=== PATIENT | male | born 1945 | race Caucasian/White ===

== ENCOUNTER 2016-10-06 11:23 | Outpatient (CLI) | payer MEDICARE | END 2016-10-06 11:24 | disposition home or self-care (01) | DX: E11.9 Type 2 diabetes mellitus without complications (principal) ==

== ENCOUNTER 2017-04-02 15:10 | Outpatient (CLI) | payer MEDICARE ==
[2017-04-02 18:56] LABS: ALBUMIN/GLOBULIN RATIO 1.6 (1.0-2.2); BUN - BLOOD UREA NITROGEN 30 mg/dL (6-20); CALCIUM 9.4 mg/dL (8.5-10.3); CARBON DIOXIDE - CO2 26 mmol/L (21-32); CHLORIDE 99 mmol/L (101-111); CHOLESTEROL 138 mg/dL; CREATININE 1.3 mg/dL (0.6-1.2); GFR - MDRD 55 (>89); GLUCOSE 79 mg/dL (70-100); HDL CHOLESTEROL 46 mg/dL; LDL/HDL RATIO 1.4 (<3.6); POTASSIUM 5.3 mmol/L (3.5-5.0); SODIUM 136 mmol/L (135-145); TOTAL PROTEIN 7.3 g/dL (6.7-8.2); TRIGLYCERIDES 137 mg/dL; VLDL CHOLESTEROL 27 mg/dL
[2017-04-02 19:49] LABS: HEMOGLOBIN A1C 0.64 g/dL
== END 2017-04-02 15:11 | disposition home or self-care (01) ==
LOC: LAB.R 15:10
PROVIDERS: ATTEND Internal Medicine
DX: E78.5 Hyperlipidemia, unspecified (principal); E11.9 Type 2 diabetes mellitus without complications
CPT/HCPCS: 80053; 80061; 83036

== ENCOUNTER 2017-06-13 11:16 | Emergency (ER) | payer MEDICARE ==
--- NOTE | 2017-06-13 11:51 | ED Physician Documentation ---
History of Present Illness - Stated complaint Stated Complaint: DIZZY - Chief complaint Chief Complaint: Neuro - Additonal information Additional information: hx from pt 72 male hx DM and perhaps a hx of irreg HR awoke this AM unable to ambulate 2/2 balance issues/ataxia not vertigo/dizziness no MORALES no neck pain no fall or injury no numbness no weakness no vision/hearing/speech changes Review of Systems Constitutional: denies: Fever Eyes: denies: Loss of vision Ears: denies: Loss of hearing Cardiac: denies: Chest pain / pressure Respiratory: denies: Dyspnea GI: denies: Abdominal Pain Endocrine: denies: Easy bruising / bleeding Immunocompromised: denies: Immunocompromised PD PAST MEDICAL HISTORY - Past Medical History Past Medical History: Yes Cardiovascular: Hypertension Respiratory: None Neuro: None Endocrine/Autoimmune: Type 2 diabetes GI: None : Kidney stones HEENT: None Psych: None Musculoskeletal: None Derm: None - Past Surgical History General: Cholecystectomy - Present Medications Home Medications: Ambulatory Orders Medication Instructions Recorded Confirmed Allopurinol [Zyloprim] 500 mg PO DAILY 11/20/14 06/13/17 Lisinopril 0 mg PO DAILY 11/20/14 06/13/17 metFORMIN [Glucophage] 1,000 mg PO BID 11/20/14 06/13/17 Meclizine [Antivert] 25 mg PO Q6H PRN #20 tablet 06/13/17 - Allergies Allergies/Adverse Reactions: Allergies Allergy/AdvReac Type Severity Reaction Status Date / Time No Known Drug Allergies Allergy Verified 11/20/14 17:18 - Social History Does the pt smoke?: No Smoking Status: Never smoker Does the pt drink ETOH?: Yes Does the pt have substance abuse?: No - Immunizations Immunizations are current?: Yes - POLST Patient has POLST: No PD ED PE NORMAL - Vitals Vital signs reviewed: Yes - General General: Alert and oriented X 3 - HEENT HEENT: PERRL, EOMI (no nystagmus) - Neck Neck: Supple, no meningeal sign - Cardiac Cardiac: RRR - Respiratory Respiratory: No respiratory distress, Clear bilaterally - Abdomen Abdomen: Soft, Non tender - Neuro Neuro: Alert and oriented X 3, track service person 2-12 intact, No motor deficit, No sensory deficit, Normal speech Eye Opening: Spontaneous Motor: Obeys Commands Verbal: Oriented GCS Score: 15 Results - Vitals Vitals: Vital Signs - 24 hr 06/13/17 06/13/17 06/13/17 11:20 12:46 17:41 Temperature 36.0 C L 36.5 C Heart Rate 70 66 70 Respiratory 17 15 16 Rate Blood Pressure 140/94 H 112/65 133/89 H O2 Saturation 95 98 96 Oxygen O2 Source [] Room air O2 Source Room air - EKG (time done) 1126 Rate: Rate (enter#) (67) Rhythm: NSR (`) [place]: LAD Intervals: Normal NC Ischemia: Normal ST segments - Labs Labs: Laboratory Tests 06/13/17 06/13/17 12:00 12:00 WBC 5.6 RBC 4.97 Hgb 15.0 Hct 45.1 MCV 90.9 MCH 30.3 MCHC 33.3 RDW 14.7 Plt Count 188 MPV 7.8 Neut # 3.0 Lymph # 1.8 Jack # 0.4 Eos # 0.4 Baso # 0.1 Absolute Nucleated RBC 0.00 Nucleated RBC % 0.0 Sodium 138 Potassium 4.5 Chloride 103 Carbon Dioxide 28 Anion Gap 7.0 BUN 28 H Creatinine 1.4 H Estimated GFR (MDRD) 50 L Glucose 141 H Calcium 9.1 - Rads (name of study) MRI brain Radiology: See rad report (no acute mass infarct bleed - scattered areas most c/ w sequelae of chrinic infarction) MRA brain Radiology: See rad report (no abn) MRA neck Radiology: See rad report (no abn) echo Radiology: See rad report (NSR, LVH, 65-70%, no thrombus, dilated aortic root at 4 cm without dissection) PD MEDICAL DECISION MAKING - ED course ED course: presently NIHSS zero and pt is able to ambulate and sx are clearing though still feels off balance awoke with sx so even if this is a CVA pt is not a TPA candidate sx improving so sounds concerning for cerebellar TIA limited admission capabilities at [facility] today 2/2 tele malfunction on med surg - so will do full TIA work up from ER (MRI brain MRA brain neck, echo) all results back - no evidence of acute CVA and no reversible cause for TIA found will try meclizine sx continue to imprve though not completely gone at this pt feel have ruled out emergent and / or reversible issues and safe to dc pt home with PMD fup Departure - Departure Disposition: 01 Home, Self Care Clinical Impression: Dizziness, Ataxia Condition: Good Instructions: ED Dizziness [facility]O Follow-Up: Joseph Michaud MD [Primary Care Provider] - Prescriptions: Meclizine [Antivert] 25 mg PO Q6H PRN #20 tablet PRN Reason: Dizziness Comments: The MRIs do not show any new strokes or tumors or bleeding in your brain. There was some evidence of old small strokes due to small vessel disease and an area in the back right of your brain that may have been injured or suffered a stroke in the past - none of these findings would explain your symptoms today On the angiogram, all the vessels look fine too - no blockages or tears. The ultrasound of your heart was mostly fine too - normal rhythm, no clots in the chambers or on the valves to embolize to your brain. The only abnormality was an enlarged aorta which would not cause the symptoms you had today but needs to be followed by your PMD with an ultrasound every 6 months or so so make sure the aorta does not get so big it needs surgery to prevent rupture. Given the reassuring work up in the ER today, I do not think your symptoms were due to a stoke or a mini stroke (TIA) It may be a problem with the balance chambers of your inner ear. Given the reassuring work up, and that your symptoms are improved to the point where you feel safe walking, think it is safe for you to go home. Take the medication I prescribed as needed. Please follow up with your PMD for a recheck within the week - if you continue to have symptoms you may need to to see a neurologist for more work up beyond what we have been able to do today in the ER NIHSS - Time Time: 11:45 - Level of Consciousness Level of consciousness: (0) Alert, Keenly responsive LOC Questions: (0) Answers both Q's correct LOC Commands: (0) Performs both correctly - Gaze Best Gaze: (0) Normal - Visual Visual: (0) No loss - Facial Palsy Facial Palsy: (0) Normal, symmetrical movement - Motor Arms (both separate) Motor Arm (right): (0) No drift Motor Arm (left): (0) No drift - Motor Legs (both separate) Motor Leg (right): (0) No drift Motor Leg (left): (0) No drift - Limb Ataxia Limb Ataxia: (0) Absent - Sensory Sensory: (0) Normal - Best Language Best Language: (0) No aphasia - Dysarthria Dysarthria: (0) Normal - Extinction and Inattention (formally neg Extinction and inattention: (0) No abnormality - Total Score/Results Total Score/Result: 0
[2017-06-13 12:20] LABS: BASOPHILS # (AUTO) 0.1 10^3/uL (0.0-0.1); EOSINOPHILS # (AUTO) 0.4 10^3/uL (0.0-0.7); EOSINOPHILS % (AUTO) 7.7 %; LYMPHOCYTES # (AUTO) 1.8 10^3/uL (1.5-3.5); LYMPHOCYTES % (AUTO) 31.8 %; MEAN CORPUSCULAR HEMOGLOBIN 30.3 pg (27.0-31.0); MEAN CORPUSCULAR HGB CONC 33.3 g/dL (32.0-36.0); MEAN CORPUSCULAR VOLUME 90.9 fL (80.0-94.0); MEAN PLATELET VOLUME 7.8 fL (7.4-11.4); MONOCYTES # (AUTO) 0.4 10^3/uL (0.0-1.0); MONOCYTES % (AUTO) 6.3 %; NEUTROPHILS % (AUTO) 53.2 %; PLT - PLATELET COUNT 188 10^3/uL (130-450); RED BLOOD COUNT 4.97 10^6/uL (4.70-6.10); RED CELL DISTRIBUTION WIDTH 14.7 % (12.0-15.0); WHITE BLOOD COUNT 5.6 x10^3/uL (4.8-10.8)
[2017-06-13 12:25] LABS: CALCIUM 9.1 mg/dL (8.5-10.3); CREATININE 1.4 mg/dL (0.6-1.2)
--- NOTE | 2017-06-13 15:48 | MRI Report ---
EXAM: MRI BRAIN WITHOUT CONTRAST EXAM DATE: 06/13/2017 03:23 PM. CLINICAL HISTORY: Ataxia. COMPARISON: None. TECHNIQUE: Multiplanar, multisequence T1-weighted and fluid-sensitive MR sequences of the brain were performed. Sequences optimized for routine evaluation. Other: None. IV Contrast: None. FINDINGS: The study is limited due to patient inability to lay flat; as such standard head coil was not used, i Streaktead FLEX-M oil was used. Brain Volume: Normal for age. Parenchyma/Dura: No evidence of acute or subacute infarct. No evidence of intracranial hemorrhage, ma ss, midline shift, or hydrocephalus. Cystic encephalomalacia posterior right cerebellar hemisphere, l ikely representing sequela of chronic infarction. Scattered T2/FLAIR hyperintense subcortical and [place]ol[place] p white matter lesions within cerebral hemispheres bilaterally. No parenchymal microhemorrhages. Ventricles/Cisterns: No hydrocephalus. No abnormal extra-axial fluid collection or hemorrhage. Orbits: Symmetric and unremarkable. Sella Turcica: The pituitary gland, cavernous sinuses, suprasellar cistern and optic chiasm are unrem arkable. IAC: Symmetric and unremarkable. Vasculature: Normal signal flow void is seen in the major arterial structures at the skull base. Sinuses: No acute appearing sinus disease. Bones: No focal pathologic appearing marrow signal changes. Other: None. IMPRESSION: 1. No MRI evidence of acute intracranial abnormality, specifically no evidence of acute or subacute i nfarct, acute intracranial hemorrhage, mass, midline shift, or hydrocephalus. 2. Cystic encephalomalacia posterior right cerebellar hemisphere, likely representing sequela of coo page infarction. 3. Scattered T2/FLAIR hyperintense subcortical and deep white matter lesions within cerebral hemisphe res bilaterally. While nonspecific, these are favored to represent sequela of chronic microangiopathy . [facility] Referring Provider Line: [phone] SITE ID: [id number]
--- NOTE | 2017-06-13 15:57 | MRI Report ---
EXAM MRA BRAIN EXAM DATE: 06/13/2017 02:44 PM. CLINICAL HISTORY: Ataxia. COMPARISON: MRI brain obtained concurrently TECHNIQUE: Multiplanar, multisequence MRA sequences of the brain were performed. Other: None. Post-pr ocessing: Multiplanar 3D MIP reconstructions. IV Contrast: None. FINDINGS: RIGHT Internal Carotid (ICA): The cervical right internal carotid artery is tortuous but patent. The right carotid siphon is unremarkable. Middle Cerebral (MCA): No aneurysm, stenosis or anomaly. Anterior Cerebral (MERA): No aneurysm, stenosis or anomaly. Posterior Cerebral (BLUEPRINT REPRODUCER): No aneurysm, stenosis or anomaly. Posterior Communicating (P-COM): No aneurysm, stenosis or anomaly. Vertebral: No aneurysm, stenosis or anomaly in the visualized upper vertebral artery. LEFT Internal Carotid (ICA): The cervical left internal carotid artery is tortuous but patent. The left ca rotid siphon is unremarkable. Middle Cerebral (MCA): No aneurysm, stenosis or anomaly. Anterior Cerebral (MERA): No aneurysm, stenosis or anomaly. Posterior Cerebral (BLUEPRINT REPRODUCER): No aneurysm, stenosis or anomaly. Posterior Communicating (P-COM): No aneurysm, stenosis or anomaly. Vertebral: No aneurysm, stenosis or anomaly in the visualized upper vertebral artery. MIDLINE Anterior Communicating (A-COM): No aneurysm, stenosis or anomaly. Basilar Artery:No aneurysm, stenosis or anomaly. Other: None. IMPRESSION: 1. No MRA evidence of hemodynamically significant stenosis, dissection, occlusion, aneurysm, or vascu lar malformation within the intracranial arteries. 2. The cervical internal carotid arteries bilaterally are tortuous but patent. [facility] Referring Provider Line: [phone] SITE ID: [id number]
--- NOTE | 2017-06-13 16:00 | MRI Report ---
EXAM: MR ANGIOGRAM NECK EXAM DATE: 06/13/2017 02:33 PM. CLINICAL HISTORY: Ataxia. COMPARISON: None. TECHNIQUE: Multiplanar, multisequence MRA sequences of the neck were performed without intravenous co ntrast. Other: None. Post-processing: Multiplanar 3D MIP reconstructions. IV Contrast: None. Evaluat ion of arterial stenosis is based on a NASCET method of measurement. FINDINGS: Somewhat limited noncontrast MRA of the neck. RIGHT Common Carotid: The most proximal portion not visualized, likely artifactual Patent. No dissection or significant stenosis. Internal Carotid: Patent. No dissection or significant stenosis. External Carotid: Patent. No dissection or significant stenosis. Vertebral: Patent. No dissection or significant stenosis. LEFT Common Carotid: The most proximal portion not visualized, likely artifactual Patent. No dissection or significant stenosis. Internal Carotid: Patent. No dissection or significant stenosis. External Carotid: Patent. No dissection or significant stenosis. Vertebral: Patent. No dissection or significant stenosis. Intracranial Circulation: No stenoses or aneurysms in the visualized portion of the intracranial vasc ulature. Other: The soft tissues, bones, and lung apices are unremarkable. IMPRESSION: Somewhat limited noncontrast MRA evaluation of the neck arteries. Given this limitation, no definite hemodynamically significant stenosis, dissection, or occlusion involving the extracranial arteries. T he most proximal common carotid arteries are not visualized clearly on either side, however this is l ikely artifactual. [facility] Referring Provider Line: [phone] SITE ID: [id number]
--- NOTE | 2017-06-13 16:00 | MRI Preliminary Report ---
Exam: MRI ANGIO NECK W/O (MRA) IMPRESSION: Somewhat limited noncontrast MRA evaluation of the neck arteries. Given this limitation, no definite hemodynamically significant stenosis, dissection, or occlusion involving the extracranial arteries. T he most proximal common carotid arteries are not visualized clearly on either side, however this is l ikely artifactual. [facility] SITE ID: [id number]
[2017-06-13] MEDS ORDERED: MECLIZINE 12.5 MG TABLET PO STA (17:05)
[2017-06-13 17:41] VITALS: BP 133/89
== END 2017-06-13 18:30 | disposition home or self-care (01) ==
LOC: ED 11:16
DX: R42 Dizziness and giddiness (principal); N28.9 Disorder of kidney and ureter, unspecified; R94.31 Abnormal electrocardiogram [ECG] [EKG]; I10 Essential (primary) hypertension; E11.9 Type 2 diabetes mellitus without complications; Z79.84 Long term (current) use of oral hypoglycemic drugs
CPT/HCPCS: 36415; 70544; 70547; 70551; 80048; 85025; 93005; 93306; 99283; 99284; A9270

== ENCOUNTER 2017-12-11 08:38 | Outpatient (CLI) | payer MEDICARE ==
[2017-12-11 09:02] LABS: BASOPHILS % (AUTO) 0.8 %; EOSINOPHILS # (AUTO) 0.6 10^3/uL (0.0-0.7); EOSINOPHILS % (AUTO) 10.6 %; HGB - HEMOGLOBIN 14.1 g/dL (14.0-18.0); LYMPHOCYTES % (AUTO) 34.6 %; MEAN CORPUSCULAR HEMOGLOBIN 30.1 pg (27.0-31.0); MEAN CORPUSCULAR HGB CONC 32.3 g/dL (32.0-36.0); MEAN CORPUSCULAR VOLUME 93.4 fL (80.0-94.0); MEAN PLATELET VOLUME 7.6 fL (7.4-11.4); MONOCYTES # (AUTO) 0.4 10^3/uL (0.0-1.0); MONOCYTES % (AUTO) 7.5 %; NEUTROPHILS # (AUTO) 2.7 10^3/uL (1.5-6.6); NEUTROPHILS % (AUTO) 46.5 %; PLT - PLATELET COUNT 185 10^3/uL (130-450); RED BLOOD COUNT 4.68 10^6/uL (4.70-6.10); RED CELL DISTRIBUTION WIDTH 14.7 % (12.0-15.0); WHITE BLOOD COUNT 5.9 x10^3/uL (4.8-10.8)
[2017-12-11 09:25] LABS: ALBUMIN 3.9 g/dL (3.2-5.5); ALBUMIN/GLOBULIN RATIO 1.2 (1.0-2.2); ALKALINE PHOSPHATASE 87 IU/L (42-121); ALT ALANINE AMINOTRANSFERASE 17 IU/L (10-60); AST ASPARTATE AMINOTRANSFERASE 19 IU/L (10-42); BUN - BLOOD UREA NITROGEN 23 mg/dL (6-20); CALCIUM 9.1 mg/dL (8.5-10.3); CARBON DIOXIDE - CO2 30 mmol/L (21-32); CHLORIDE 99 mmol/L (101-111); CHOL/HDL RATIO 4.1 (<5.0); CHOLESTEROL 196 mg/dL; CREATININE 1.5 mg/dL (0.6-1.2); GFR - MDRD 46 (>89); GLUCOSE 122 mg/dL (70-100); HDL CHOLESTEROL 48 mg/dL; LDL CHOLESTEROL,CALCULATED 122 mg/dL; LDL/HDL RATIO 2.5 (<3.6); SODIUM 136 mmol/L (135-145); TOTAL PROTEIN 7.1 g/dL (6.7-8.2); URIC ACID 5.8 mg/dL (2.6-7.2); VLDL CHOLESTEROL 26 mg/dL
[2017-12-11 09:38] LABS: HB2 TOTAL 15.8 g/dL; HEMOGLOBIN A1C 0.67 g/dL
== END 2017-12-11 08:39 | disposition home or self-care (01) ==
LOC: LAB 08:38
PROVIDERS: ATTEND Internal Medicine
DX: E78.5 Hyperlipidemia, unspecified (principal); I10 Essential (primary) hypertension; E11.9 Type 2 diabetes mellitus without complications; Z79.899 Other long term (current) drug therapy
CPT/HCPCS: 36415; 80053; 80061; 83036; 83721; 84550; 85025

== ENCOUNTER 2018-04-22 11:46 | Outpatient (CLI) | payer MEDICARE ==
--- NOTE | 2018-04-22 14:43 | XRAY Report ---
Reason: SCAPULALGIA,RIGHT Procedure Date: 04/22/2018 Accession Number: [id number] / [id number] Procedure: XR - Chest 2 View X-Ray CPT Code: 09099 FULL RESULT: EXAM: CHEST RADIOGRAPHY EXAM DATE: 04/22/2018 12:36 PM. CLINICAL HISTORY: SCAPULALGIA,RIGHT. COMPARISON: None. TECHNIQUE: 2 views. FINDINGS: Lungs/Pleura: Bilateral nipple shadows. Left basilar atelectasis or scarring. Eventration right hemidiaphragm.. No pleural effusion. No pneumothorax. Normal volumes. Mediastinum: Heart size normal. Mildly ectatic aorta. Other: DJD spine. Right upper quadrant clips. IMPRESSION: No active cardiopulmonary disease [facility]
--- NOTE | 2018-04-22 15:24 | XRAY Report ---
Reason: SCAPULALGIA,RIGHT Procedure Date: 04/22/2018 Accession Number: [id number] / [id number] Procedure: XR - Ribs 2 View RT CPT Code: FULL RESULT: EXAM: RIGHT RIB RADIOGRAPHY EXAM DATE: 04/22/2018 12:36 PM. CLINICAL HISTORY: SCAPULALGIA,RIGHT. COMPARISON: Chest x-ray same day. TECHNIQUE: 4 views. FINDINGS: Bones: Normal. No fracture or bone lesion. Lungs: Area of diskoid atelectasis right lung base not well seen on x-ray.. No pneumothorax or pleural effusions. Mediastinum: Heart and cardiomediastinal contours are unremarkable. Other: None. IMPRESSION: 1. Normal rib radiography. 2. Area of diskoid atelectasis right lung base. Recommend short-term follow-up 1 month. [facility]
== END 2018-04-22 11:47 | disposition home or self-care (01) ==
LOC: DI 11:46
PROVIDERS: ATTEND Internal Medicine
DX: J98.11 Atelectasis (principal); M89.8X1 Other specified disorders of bone, shoulder
CPT/HCPCS: 71046

== ENCOUNTER 2019-04-15 08:26 | Emergency (ER) | payer MEDICARE ==
[2019-04-15 08:36] VITALS: BP 135/80
--- NOTE | 2019-04-15 09:08 | XRAY Report ---
Reason: pain swelling from fall 1 week ago Procedure Date: 04/15/2019 Accession Number: [id number] / [id number] Procedure: XR - Ankle 3 View LT CPT Code: Final Report FULL RESULT: EXAM: LEFT ANKLE RADIOGRAPHY EXAM DATE: 04/15/2019 08:44 AM. CLINICAL HISTORY: Left ankle pain. COMPARISON: None. TECHNIQUE: 3 views. FINDINGS: Bones: No fracture identified. Joints: Degenerative changes in the subtalar joint. Normal alignment. Soft Tissues: Normal. No soft tissue swelling. IMPRESSION: No acute findings. [facility]
--- NOTE | 2019-04-15 09:25 | ED Physician Documentation ---
History of Present Illness - Stated complaint Stated Complaint: LT PX - Chief complaint Chief Complaint: Trauma Ext - Additonal information Additional information: This is a 74-year-old male who presents with worsening left foot pain. Patient states he has history of some spinal stenosis which caused some chronic slight weakness in his left foot which is been persistent for many years, this leads him to occasionally have falls when he trips on his left foot. He had a fall last Sunday or , he does not member the exact mechanism but had some pain in his left foot afterwards. h+He has been able to walk on it fairly normally, but it has become bruised and swollen, and the pain ihas increased over the last week. Because of this he decided to come in today and get checked out. Review of Systems Constitutional: denies: Fever Musculoskeletal: reports: Extremity pain PD PAST MEDICAL HISTORY - Past Medical History Cardiovascular: Hypertension Respiratory: None Endocrine/Autoimmune: Type 2 diabetes GI: None : Kidney stones HEENT: None Psych: None Musculoskeletal: None Derm: None - Past Surgical History General: Cholecystectomy - Present Medications Home Medications: Ambulatory Orders Medication Instructions Recorded Confirmed Allopurinol [Zyloprim] 500 mg PO DAILY 11/20/14 06/13/17 Lisinopril 0 mg PO DAILY 11/20/14 06/13/17 metFORMIN [Glucophage] 1,000 mg PO BID 11/20/14 06/13/17 Meclizine [Antivert] 25 mg PO Q6H PRN #20 tablet 06/13/17 Acetaminophen 650 mg PO Q6HR #30 tablet 04/15/19 Ibuprofen 600 mg PO Q6H PRN #30 tablet 04/15/19 - Allergies Allergies/Adverse Reactions: Allergies Allergy/AdvReac Type Severity Reaction Status Date / Time No Known Drug Allergies Allergy Verified 04/15/19 08:36 - Social History Does the pt smoke?: No Smoking Status: Never smoker Does the pt drink ETOH?: Yes Does the pt have substance abuse?: No - Immunizations Immunizations are current?: Yes - POLST Patient has POLST: No PD ED PE NORMAL - General General: Alert and oriented X 3 - HEENT HEENT: Atraumatic - Neck Neck: Supple, no meningeal sign - Cardiac Cardiac: Strong equal pulses - Respiratory Respiratory: No respiratory distress - Extremities Extremities: Other (There is bruising and edema over the left foot, patient is tender over the base of the third through fourth metatarsal. There is no lateral medial malleoli tenderness. No proximal tibial or fibular tenderness. Sensation is intactTo light touch over the extremity, the patient states he has some chronic reduced sensation in the foot. He is able to dorsiflex and plantarflex ankle with 5 out of 5 strength.) Results - Vitals Vitals: Vital Signs - 24 hr 04/15/19 08:33 Temperature 36.5 C Heart Rate 72 Respiratory 15 Rate Blood Pressure 135/80 H O2 Saturation 98 Oxygen O2 Source [With Activity] Room air O2 Source Room air - Rads (name of study) XR ankle Radiology: Other (No acute osseous abnormality) Foot, weight bearing Radiology: Other (No acute fracture or abnormality) PD MEDICAL DECISION MAKING - ED course Complexity details: considered differential (Fracture, contusion, sprain, strain) ED course: Pt's limb is neurovascularly intact. There is swelling and bruising over the fore/midfoot. XR of the ankle and weight bearing films of the foot were negative for fracture. Occult fracture less likely given his ability to walk on it. I discussed RICE with patient, JOVANNA wrap applied, and PCP follow up recommended. I also discussed repeat XR for continued symptoms after a week. Patient agrees and was discharged home. Departure - Departure Disposition: 01 Home, Self Care Clinical Impression: Contusion Qualifiers: Encounter type: initial encounter Contusion area: foot Laterality: left Qualified Code(s): S90.32XA - Contusion of left foot, initial encounter Condition: Good Instructions: ED RICE Follow-Up: Héctor Ha MD [Primary Care Provider] - (Follow-up in 7 to 10 days if having not improving pain or worsening.) Prescriptions: Acetaminophen 650 mg PO Q6HR #30 tablet Ibuprofen 600 mg PO Q6H PRN #30 tablet PRN Reason: Pain Comments: You were seen today for foot pain. Our x-rays do not show sign of a fracture, is possible that you have a contusion or sprain of your foot. You can take the tylenol ibuprofen for discomfort, keep your foot elevated and try to ice it if possible. If you are having not improving or worsening pain please follow-up with your primary care provider in 7 to 10 days for repeat x-rays and evaluation. You may return to the emergency department with worsening symptoms especially symptoms such as new weakness or severe pain Discharge Date/Time: 04/15/19 11:26
--- NOTE | 2019-04-15 10:39 | XRAY Report ---
Reason: With weight bearing film please Procedure Date: 04/15/2019 Accession Number: [id number] / [id number] Procedure: XR - Foot 3 View LT CPT Code: Final Report FULL RESULT: EXAM: LEFT FOOT RADIOGRAPHY EXAM DATE: 04/15/2019 10:01 AM. CLINICAL HISTORY: With weight bearing film please. COMPARISON: ANKLE 3 VIEW LT 04/15/2019 8:39 AM. TECHNIQUE: 3 views. FINDINGS: Bones: No acute fracture. Prominent Achilles spur with lucency at the base. Joints: Normal. No subluxations. Soft Tissues: Mild diffuse left foot swelling. Mild left ankle swelling. IMPRESSION: 1. No fracture or malalignment. 2. Mild left foot and ankle swelling. 3. If patient remains symptomatic, recommend follow up in 10-14 days. [facility]
== END 2019-04-15 11:26 | disposition home or self-care (01) ==
LOC: ED 08:26
DX: S90.32XA Contusion of left foot, initial encounter (principal); W19.XXXA Unspecified fall, initial encounter; M54.5 Low back pain; E78.5 Hyperlipidemia, unspecified; M17.9 Osteoarthritis of knee, unspecified; I12.9 Hypertensive chronic kidney disease with stage 1 through stage 4 chronic kidney disease, or unspecified chronic kidney disease; N18.9 Chronic kidney disease, unspecified; E11.22 Type 2 diabetes mellitus with diabetic chronic kidney disease; Z79.84 Long term (current) use of oral hypoglycemic drugs
CPT/HCPCS: 36415; 80053; 80061; 83036; 84550; 85025; 99283

== ENCOUNTER 2019-04-15 11:29 | Outpatient (CLI) | payer MEDICARE ==
[2019-04-15 11:48] LABS: BASOPHILS # (AUTO) 0.1 10^3/uL (0.0-0.1); BASOPHILS % (AUTO) 0.7 %; EOSINOPHILS # (AUTO) 0.4 10^3/uL (0.0-0.7); EOSINOPHILS % (AUTO) 5.8 %; HGB - HEMOGLOBIN 14.6 g/dL (14.0-18.0); LYMPHOCYTES # (AUTO) 2.1 10^3/uL (1.5-3.5); LYMPHOCYTES % (AUTO) 28.7 %; MEAN CORPUSCULAR HEMOGLOBIN 29.7 pg (27.0-31.0); MEAN CORPUSCULAR VOLUME 95.7 fL (80.0-94.0); MEAN PLATELET VOLUME 9.3 fL (7.4-11.4); MONOCYTES # (AUTO) 0.6 10^3/uL (0.0-1.0); MONOCYTES % (AUTO) 7.9 %; NEUTROPHILS # (AUTO) 4.1 10^3/uL (1.5-6.6); NEUTROPHILS % (AUTO) 56.3 %; PLT - PLATELET COUNT 205 10^3/uL (130-450); RED BLOOD COUNT 4.92 10^6/uL (4.70-6.10); RED CELL DISTRIBUTION WIDTH 13.7 % (12.0-15.0); WHITE BLOOD COUNT 7.2 x10^3/uL (4.8-10.8)
[2019-04-15 12:05] LABS: ALBUMIN 4.3 g/dL (3.2-5.5); ALBUMIN/GLOBULIN RATIO 1.2 (1.0-2.2); ALKALINE PHOSPHATASE 70 IU/L (42-121); ALT ALANINE AMINOTRANSFERASE 20 IU/L (10-60); AST ASPARTATE AMINOTRANSFERASE 20 IU/L (10-42); BILIRUBIN,TOTAL 0.4 mg/dL (0.2-1.0); BUN - BLOOD UREA NITROGEN 31 mg/dL (6-20); CALCIUM 9.2 mg/dL (8.5-10.3); CARBON DIOXIDE - CO2 27 mmol/L (21-32); CHLORIDE 105 mmol/L (101-111); CHOL/HDL RATIO 3.2 (<5.0); CHOLESTEROL 145 mg/dL; CREATININE 1.5 mg/dL (0.6-1.2); GFR - MDRD 46 (>89); GLUCOSE 132 mg/dL (70-100); HDL CHOLESTEROL 46 mg/dL; LDL CHOLESTEROL,CALCULATED 72 mg/dL; LDL/HDL RATIO 1.6 (<3.6); SODIUM 143 mmol/L (135-145); TOTAL PROTEIN 7.8 g/dL (6.7-8.2); URIC ACID 5.7 mg/dL (2.6-7.2); VLDL CHOLESTEROL 27 mg/dL
[2019-04-15 12:24] LABS: HB2 TOTAL 14.5 g/dL; HEMOGLOBIN A1C 0.74 g/dL; HEMOGLOBIN A1C % 6.8 % (4.6-6.2)
== END 2019-04-15 11:30 | disposition home or self-care (01) ==
LOC: LAB 11:29
PROVIDERS: ATTEND Family Medicine
DX: M54.5 Low back pain (principal); M17.11 Unilateral primary osteoarthritis, right knee; I12.9 Hypertensive chronic kidney disease with stage 1 through stage 4 chronic kidney disease, or unspecified chronic kidney disease; M17.9 Osteoarthritis of knee, unspecified; E11.22 Type 2 diabetes mellitus with diabetic chronic kidney disease; N18.9 Chronic kidney disease, unspecified; E78.5 Hyperlipidemia, unspecified
CPT/HCPCS: 36415; 80053; 80061; 83036; 83721; 84550; 85025

== ENCOUNTER 2021-03-01 11:02 | Outpatient (CLI) | payer MEDICARE ==
--- NOTE | 2021-03-01 13:05 | MRI Report ---
PROCEDURE: Lumbar Spine W/O INDICATIONS: LUMBAR RADICULOPATHY TECHNIQUE: Noncontrast sagittal T1 spin echo and T2 fast echo, sagittal STIR, axial T1 and T2 fast spin echo thr ough the lumbar spine. In cases with scoliosis, additional coronal T2 fast spin echo may be performe d. COMPARISON: Correlation is made with prior abdomen and pelvis CT, 11/20/2014 FINDINGS: Image quality: Motion artifact is noted. Alignment and Curvature: There is normal bony alignment. Bone Marrow: Marrow is of normal overall signal. No acute vertebral body compression fractures. Spinal Cord: Conus medullaris terminates at the L1 level. Visualized cord demonstrates normal signa l and size. Paraspinous Soft Tissues: No paravertebral masses. Numerous bilateral renal cysts are seen. T12-L1: Normal in appearance. L1-L2: No significant abnormality is seen. L2-L3: The disc height is well-preserved. There is loss of disc signal seen. Moderate disc bulg e is seen, which is eccentric to the left. Moderate facet hypertrophy is seen. Mild to moderate jaqui ateral neuroforaminal narrowing can be seen. Moderate central canal narrowing is seen. L3-L4: The disc height is well-preserved. There is loss of disc signal seen. Moderate disc bulge i s seen at this level. Moderate facet hypertrophy is seen. Moderate bilateral neural foraminal abel rowing is seen. Moderate central canal narrowing is seen. L4-L5: Mild loss of disc height and disc signal are seen. Moderate disc bulge is seen, with a ce ntral/right disc protrusion. Apparent prior right hemilaminectomy change can be seen. Please clinical ly with known patient history. At least moderate facet hypertrophy is seen. There is moderate to juliette re bilateral neuroforaminal narrowing seen. Compression is seen upon the exiting nerve roots. Moder ate central canal narrowing is seen. L5-S1: Moderate to severe loss of disc height and disc signal can be seen. Moderate disc bulge is s een, with a central/left disc protrusion. At least moderate facet hypertrophy can be seen. Prior righ t hemilaminectomy change can be seen. At least moderate bilateral neuroforaminal narrowing can be see n. Compression is seen upon the exiting nerve roots. Moderate to severe central canal narrowing is s een. IMPRESSION: Multiple levels of lumbar spine degenerative change are seen, which are worst inferiorly . Prior right hemilaminectomy change at L4-L5 and L5-S1. Reviewed by: Gavin Crenshaw MD on 03/01/2021 12:04 PM [facility] Approved by: Gavin Crenshaw MD on 03/01/2021 12:04 PM [facility] Station ID: [id number]
== END 2021-03-01 11:03 | disposition home or self-care (01) ==
LOC: DI 11:02
PROVIDERS: ATTEND Family Medicine
DX: M47.26 Other spondylosis with radiculopathy, lumbar region (principal); M47.27 Other spondylosis with radiculopathy, lumbosacral region; M51.16 Intervertebral disc disorders with radiculopathy, lumbar region; M48.061 Spinal stenosis, lumbar region without neurogenic claudication; M51.37 Other intervertebral disc degeneration, lumbosacral region; M48.07 Spinal stenosis, lumbosacral region; M51.17 Intervertebral disc disorders with radiculopathy, lumbosacral region; M10.9 Gout, unspecified; R60.1 Generalized edema; R49.0 Dysphonia; E11.42 Type 2 diabetes mellitus with diabetic polyneuropathy; I10 Essential (primary) hypertension; Z98.890 Other specified postprocedural states
CPT/HCPCS: 36415; 80053; 83036; 84439; 84443; 84481; 84550; 85025

== ENCOUNTER 2021-03-01 12:03 | Outpatient (CLI) | payer MEDICARE ==
[2021-03-01 12:27] LABS: BASOPHILS % (AUTO) 0.5 %; EOSINOPHILS # (AUTO) 0.4 10^3/uL (0.0-0.7); EOSINOPHILS % (AUTO) 4.7 %; HCT - HEMATOCRIT 44.5 % (42.0-52.0); HGB - HEMOGLOBIN 14.2 g/dL (14.0-18.0); LYMPHOCYTES # (AUTO) 1.8 10^3/uL (1.5-3.5); LYMPHOCYTES % (AUTO) 24.5 %; MEAN CORPUSCULAR HEMOGLOBIN 30.5 pg (27.0-31.0); MEAN CORPUSCULAR HGB CONC 31.9 g/dL (32.0-36.0); MEAN CORPUSCULAR VOLUME 95.5 fL (80.0-94.0); MONOCYTES # (AUTO) 0.5 10^3/uL (0.0-1.0); NEUTROPHILS # (AUTO) 4.7 10^3/uL (1.5-6.6); NEUTROPHILS % (AUTO) 62.9 %; PLT - PLATELET COUNT 189 10^3/uL (130-450); RED BLOOD COUNT 4.66 10^6/uL (4.70-6.10); RED CELL DISTRIBUTION WIDTH 13.5 % (12.0-15.0); WHITE BLOOD COUNT 7.4 x10^3/uL (4.8-10.8)
[2021-03-01 12:41] LABS: ALBUMIN 4.2 g/dL (3.2-5.5); ALBUMIN/GLOBULIN RATIO 1.4 (1.0-2.2); BILIRUBIN,TOTAL 0.9 mg/dL (0.2-1.0); CREATININE 1.2 mg/dL (0.6-1.2); POTASSIUM 4.7 mmol/L (3.5-5.0); TOTAL PROTEIN 7.2 g/dL (6.7-8.2); URIC ACID 5.6 mg/dL (2.6-7.2)
[2021-03-01 12:42] LABS: ESTIMATED AVERAGE GLUCOSE 220 mg/dL (70-100); HEMOGLOBIN A1c% 9.3 % (4.27-6.07)
[2021-03-01 12:55] LABS: THYROID STIMULATING HORMONE 2.04 uIU/mL (0.34-5.60)
[2021-03-01 12:57] LABS: FREE T3 3.21 pg/mL (2.5-3.9); FREE T4 (FREE THYROXINE) 0.84 ng/dL (0.58-1.64)
== END 2021-03-01 12:04 | disposition home or self-care (01) ==
LOC: LAB 12:03
PROVIDERS: ATTEND Family Medicine
DX: M10.9 Gout, unspecified (principal); R60.1 Generalized edema; R49.0 Dysphonia; E11.42 Type 2 diabetes mellitus with diabetic polyneuropathy; I10 Essential (primary) hypertension; M54.5 Low back pain
CPT/HCPCS: 36415; 80053; 83036; 84439; 84443; 84481; 84550; 85025

== ENCOUNTER 2022-10-31 11:25 | Outpatient (CLI) | payer MEDICARE ==
[2022-10-31 11:45] LABS: BASOPHILS # (AUTO) 0.1 10^3/uL (0.0-0.1); BASOPHILS % (AUTO) 1.2 %; EOSINOPHILS # (AUTO) 0.4 10^3/uL (0.0-0.7); EOSINOPHILS % (AUTO) 6.6 %; HCT - HEMATOCRIT 44.5 % (42.0-52.0); HGB - HEMOGLOBIN 14.1 g/dL (14.0-18.0); LYMPHOCYTES # (AUTO) 2.2 10^3/uL (1.5-3.5); LYMPHOCYTES % (AUTO) 36.7 %; MEAN CORPUSCULAR HEMOGLOBIN 30.1 pg (27.0-31.0); MEAN CORPUSCULAR HGB CONC 31.7 g/dL (32.0-36.0); MEAN CORPUSCULAR VOLUME 94.9 fL (80.0-94.0); MEAN PLATELET VOLUME 9.5 fL (7.4-11.4); MONOCYTES # (AUTO) 0.5 10^3/uL (0.0-1.0); MONOCYTES % (AUTO) 7.7 %; NEUTROPHILS # (AUTO) 2.9 10^3/uL (1.5-6.6); NEUTROPHILS % (AUTO) 47.5 %; PLT - PLATELET COUNT 193 10^3/uL (130-450); RED BLOOD COUNT 4.69 10^6/uL (4.70-6.10); RED CELL DISTRIBUTION WIDTH 13.5 % (12.0-15.0); WHITE BLOOD COUNT 6.1 x10^3/uL (4.8-10.8)
[2022-10-31 12:15] LABS: ALBUMIN 3.8 g/dL (3.2-5.5); ALKALINE PHOSPHATASE 82 IU/L (42-121); ALT ALANINE AMINOTRANSFERASE 26 IU/L (10-60); AST ASPARTATE AMINOTRANSFERASE 19 IU/L (10-42); BILIRUBIN,TOTAL 0.6 mg/dL (0.2-1.0); BUN - BLOOD UREA NITROGEN 19 mg/dL (6-20); CALCIUM 8.8 mg/dL (8.5-10.3); CARBON DIOXIDE - CO2 27 mmol/L (21-32); CHLORIDE 104 mmol/L (101-111); CHOL/HDL RATIO 3.2 (<5.0); CHOLESTEROL 143 mg/dL; CREATININE 1.3 mg/dL (0.6-1.2); GFR - MDRD 54 (>89); GLUCOSE 207 mg/dL (70-100); HDL CHOLESTEROL 45 mg/dL; LDL CHOLESTEROL,CALCULATED 71 mg/dL; LDL/HDL RATIO 1.6 (<3.6); POTASSIUM 4.7 mmol/L (3.5-5.0); SODIUM 137 mmol/L (135-145); THYROID STIMULATING HORMONE 2.03 uIU/mL (0.34-5.60); TOTAL PROTEIN 7.5 g/dL (6.7-8.2); TRIGLYCERIDES 133 mg/dL; VLDL CHOLESTEROL 27 mg/dL
[2022-10-31 12:20] LABS: ESTIMATED AVERAGE GLUCOSE 217 mg/dL (70-100); HEMOGLOBIN A1c% 9.2 % (4.27-6.07)
== END 2022-10-31 11:26 | disposition home or self-care (01) ==
LOC: LAB 11:25
PROVIDERS: ATTEND Family Medicine
DX: E11.42 Type 2 diabetes mellitus with diabetic polyneuropathy (principal); I10 Essential (primary) hypertension; Z12.83 Encounter for screening for malignant neoplasm of skin
CPT/HCPCS: 36415; 80053; 80061; 81599; 82043; 82570; 83036; 83721; 84153; 84443; 85025

== ENCOUNTER 2023-04-22 16:28 | Emergency (ER) | payer MEDICARE ==
[2023-04-22] MEDS ORDERED: ONDANSETRON 4 MG/2 ML VIAL IVP STA (17:04)
[2023-04-22] MEDS ORDERED: SODIUM CHLORIDE 0.9% 1,000 ML IV STA (17:04)
--- NOTE | 2023-04-22 17:06 | ED Physician Documentation ---
History of Present Illness - Stated complaint Stated Complaint: NAUSEA/DIZZY/SWEATING - Chief complaint Chief Complaint: General - Additonal information Additional information: 78-year-old male presents emergency department for evaluation of dizziness nausea, vomiting and diaphoresis. Symptoms began about 90 minutes prior to ER provider evaluation. Reports he was doing nothing simply sitting. No history of similar. He denies chest pain or shortness of air. No recent travel or illness. No history of tobacco use. Rare alcohol use. denies MORALES, neck pain. no diplopia. no numbness/weak ness Past medical history includes hypertension, hyperlipidemia, type 2 diabetes, and gout Meds: Metformin, glimepiride, atorvastatin, lisinopril, allopurinol Patient presents alert and calm. Nonfocal neuro exam. NIHSS is 0. Review of Systems Constitutional: reports: Sweats. denies: Fever Cardiac: denies: Chest pain / pressure, Palpitations, Pedal edema Respiratory: denies: Dyspnea, Cough GI: reports: Vomiting : reports: Reviewed and negative Neurologic: reports: Other (dizziness) PD PAST MEDICAL HISTORY - Past Medical History Past Medical History: Yes Cardiovascular: Hypertension Respiratory: None Endocrine/Autoimmune: Type 2 diabetes GI: None : Kidney stones HEENT: None Psych: None Musculoskeletal: None Derm: None - Past Surgical History Past Surgical History: Yes General: Cholecystectomy - Present Medications Home Medications: Ambulatory Orders Medication Instructions Recorded Confirmed Allopurinol [Zyloprim] 500 mg PO DAILY 11/20/14 06/13/17 Lisinopril 0 mg PO DAILY 11/20/14 06/13/17 metFORMIN [Glucophage] 1,000 mg PO BID 11/20/14 06/13/17 Meclizine [Antivert] 25 mg PO Q6H PRN #20 tablet 06/13/17 Acetaminophen 650 mg PO Q6HR #30 tablet 04/15/19 Ibuprofen 600 mg PO Q6H PRN #30 tablet 04/15/19 - Allergies Allergies/Adverse Reactions: Allergies Allergy/AdvReac Type Severity Reaction Status Date / Time No Known Drug Allergies Allergy Verified 04/22/23 16:51 - Social History Does the pt smoke?: No Smoking Status: Never smoker Does the pt drink ETOH?: Yes Does the pt have substance abuse?: No - Immunizations Immunizations are current?: Yes - POLST Patient has POLST: No PD ED PE NORMAL - General General: Alert and oriented X 3, No acute distress, Well developed/nourished - HEENT HEENT: Atraumatic - Neck Neck: Supple, no meningeal sign - Cardiac Cardiac: RRR, No murmur, Strong equal pulses - Respiratory Respiratory: No respiratory distress, Clear bilaterally - Abdomen Abdomen: Normal bowel sounds, Soft - Derm Derm: Warm and dry - Extremities Extremities: No deformity - Neuro Neuro: Alert and oriented X 3, 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 Eye Opening: Spontaneous Motor: Obeys Commands Verbal: Oriented GCS Score: 15 Results - Vitals Vitals: Vital Signs - 24 hr 04/22/23 04/22/23 04/22/23 16:41 17:00 17:30 Temperature 36.0 C L Heart Rate 70 86 88 Heart Rate [ Sitting] Heart Rate [ Standing] Heart Rate [ Supine] Respiratory 18 16 18 Rate Blood Pressure 151/79 H 121/73 124/76 Blood Pressure [Sitting] Blood Pressure [Standing] Blood Pressure [Supine] O2 Saturation 93 92 93 04/22/23 04/22/23 18:00 18:30 Temperature Heart Rate 99 Heart Rate [ 95 Sitting] Heart Rate [ 85 Standing] Heart Rate [ 112 H Supine] Respiratory 18 Rate Blood Pressure 124/72 Blood Pressure 127/67 [Sitting] Blood Pressure 124/72 [Standing] Blood Pressure 108/70 [Supine] O2 Saturation 92 Oxygen O2 Source [With Activity] Room air O2 Source Room air - EKG (time done) 1654 EKG releavant findings:: EKG personally interpreted by author of this note. Relevant findings are: Rate: Rate (enter#) (89) Rhythm: NSR Intervals: Prolonged NC. No: Prolonged QT QRS: Low voltage Compare to prior EKG: Unchanged from prior EKG Computer interpretation: Agree with computer - Labs Labs: Laboratory Tests 04/22/23 04/22/23 17:05 17:05 WBC 7.9 RBC 5.10 Hgb 14.8 Hct 48.0 MCV 94.1 H MCH 29.0 MCHC 30.8 L RDW 14.3 Plt Count 204 MPV 9.0 Neut # (Auto) 5.1 Lymph # (Auto) 1.9 [place] # (Auto) 0.7 Eos # (Auto) 0.3 Baso # (Auto) 0.1 Absolute Nucleated RBC 0.00 Nucleated RBC % 0.0 Sodium 137 Potassium 4.4 Chloride 102 Carbon Dioxide 25 Anion Gap 10.0 BUN 27 H Creatinine 1.5 H Estimated GFR (MDRD) 46 L Glucose 191 H Calcium 9.6 Phosphorus 4.0 Magnesium 1.7 Total Bilirubin 0.3 AST 20 ALT 22 Alkaline Phosphatase 95 Troponin I High Sens 6.4 Total Protein 7.0 Albumin 4.4 Globulin 2.6 Albumin/Globulin Ratio 1.7 Lipase 22 TSH 3.51 Free T4 Direct 1.01 - Rads (name of study) cxr Relevant Findings:: Final report received (no acute cardiopulmonary findings) angio head/neck Relevant Findings:: Final report received (No areas of hemodynamically significant stenosis, occlusion or aneurysmal dilation within anterior or posterior c wall irculation. No areas of hemodynamically significant stenosis, vascular occlusion or aneurysmal dilation within the neck vasculature.) CT head Relevant Findings:: Final report received (No acute intracranial process. Moderate atrophy and chronic microvascular ischemic changes.) PD Medical Decision Making - ED course Complexity details: reviewed results, re-evaluated patient, d/w patient ED course: 78-year-old male presents to the emergency department for the evaluation of sudden onset dizziness, nausea, feeling off balance and diaphoresis. Symptoms began about 90 minutes prior to arrival. Patient denied chest pain or shortness of air. No recent travel. I am twelve-lead ECG showed a sinus arrhythmia. Perhaps a first-degree block. However there are no findings of atrial fibrillation. While here on the monitor in the emergency department he remained in sinus rhythm, without worrisome ectopy or arrythmia. He was normotensive. He had a nonfocal neuro exam. His NIHSS was 0. Initially obtained CBC, electrolytes and thyroid. Per my interpretation no acute worrisome lab abnormalities. He does have a chronic and unchanged kidney disease. negative troponin; doubt acs. I did obtain CT of the head as well as angiogram of the head and neck which showed no findings of concern with regards to the anterior posterior circulation. Patient was administered a liter of IV fluids as well as some Zofran and on reevaluation he feels that the dizziness and sensation of being off balance has improved. His vital signs were not orthostatic. I discussed with the patient the etiology of his symptoms that could include posterior stroke and we discussed that this could not be definitively ruled out without MRI imaging. He was offered the opportunity to board in the emergency department for MRI in the a.m. as its not available at this time but he has elected to be discharged home. I personally ambulated the patient at the bedside and found him to have a stable gait without ataxia. He is advised prompt follow-up with his PCP to consider outpatient MRI imaging or if symptoms worsen or return that he will return to the ER. Departure - Departure Disposition: Home, Self Care Clinical Impression: Dizzy CKD (chronic kidney disease) Qualifiers: Chronic kidney disease stage: unspecified stage Qualified Code(s): N18.9 - Chronic kidney disease, unspecified Condition: Stable Record reviewed to determine appropriate education?: Yes Instructions: ED Dizziness [facility] Follow-Up: Héctor Ha MD [Primary Care Provider] - Comments: Abdiel you came to the emergency department today because at home you developed sudden onset of feeling dizzy, off balance and having sweats. Your EKG did not show atrial fibrillation. You were in sinus rythm. Your labs were all essentially normal though you do have unchanged chronic kidney disease. Your neurological exam in the emergency department was normal. We did do CT angiograms of the head and neck. The blood flow through the arteries of the head and neck appeared normal without any worrisome findings. There can be some types of strokes which will cause patients to fill dizzy and off balance. We will typically see signs of poor circulation affecting this area of brain in our angiograms, though not always. To definitively rule out these types of stroke you would need an MRI. It is not available tonight in the emergency department. You were offered the opportunity to board in the emergency department to receive an MRI tomorrow, however you have elected to be discharged home. Is important to follow closely with your primary doctor. They should consider an outpatient MRI of your brain. If you feel that your symptoms are worsening in any way please return to the ER and we can order the MRI. Return immediately to the ER for any slurred speech, facial droop, sudden weakness in your arms or legs, double vision or any other emergent concerns. Forms: PCP List NIHSS - Time Time: 17:00 - Level of Consciousness Level of consciousness: (0) Alert, Keenly responsive LOC Questions: (0) Answers both Q's correct LOC Commands: (0) Performs both correctly - Gaze Best Gaze: (0) Normal - Visual Visual: (0) No loss - Facial Palsy Facial Palsy: (0) Normal, symmetrical movement - Motor Arms (both separate) Motor Arm (right): (0) No drift Motor Arm (left): (0) No drift - Motor Legs (both separate) Motor Leg (right): (0) No drift Motor Leg (left): (0) No drift - Limb Ataxia Limb Ataxia: (0) Absent - Sensory Sensory: (0) Normal - Best Language Best Language: (0) No aphasia - Dysarthria Dysarthria: (0) Normal - Extinction and Inattention (formally neg Extinction and inattention: (0) No abnormality - Total Score/Results Total Score/Result: 0
[2023-04-22 17:11] LABS: BASOPHILS # (AUTO) 0.1 10^3/uL (0.0-0.1); BASOPHILS % (AUTO) 0.6 %; EOSINOPHILS # (AUTO) 0.3 10^3/uL (0.0-0.7); EOSINOPHILS % (AUTO) 3.3 %; HGB - HEMOGLOBIN 14.8 g/dL (14.0-18.0); LYMPHOCYTES # (AUTO) 1.9 10^3/uL (1.5-3.5); LYMPHOCYTES % (AUTO) 23.6 %; MEAN CORPUSCULAR HGB CONC 30.8 g/dL (32.0-36.0); MEAN CORPUSCULAR VOLUME 94.1 fL (80.0-94.0); MONOCYTES # (AUTO) 0.7 10^3/uL (0.0-1.0); MONOCYTES % (AUTO) 8.4 %; NEUTROPHILS # (AUTO) 5.1 10^3/uL (1.5-6.6); NEUTROPHILS % (AUTO) 63.7 %; PLT - PLATELET COUNT 204 10^3/uL (130-450); RED CELL DISTRIBUTION WIDTH 14.3 % (12.0-15.0); WHITE BLOOD COUNT 7.9 x10^3/uL (4.8-10.8)
[2023-04-22 17:25] VITALS: O2SAT 92
[2023-04-22 17:29] LABS: ALBUMIN 4.4 g/dL (3.2-5.5); ALBUMIN/GLOBULIN RATIO 1.7 (1.0-2.2); BILIRUBIN,TOTAL 0.3 mg/dL (0.2-1.0); CALCIUM 9.6 mg/dL (8.5-10.3); CREATININE 1.5 mg/dL (0.6-1.3); MAGNESIUM 1.7 mg/dL (1.7-2.3); POTASSIUM 4.4 mmol/L (3.5-4.5)
[2023-04-22 17:32] LABS: TROPONIN I HIGH SENSITIVITY 6.4 ng/L (2.3-19.7)
[2023-04-22 17:43] LABS: THYROID STIMULATING HORMONE 3.51 uIU/mL (0.34-5.60)
--- NOTE | 2023-04-22 18:42 | XRAY Report ---
PROCEDURE: Chest 1 View X-Ray INDICATIONS: Chest Pain TECHNIQUE: One view of the chest was acquired. COMPARISON: None FINDINGS: Surgical changes and devices: None. Lungs and pleura: No pleural effusions or pneumothorax. Lungs are clear. Mediastinum: Mediastinal contours appear normal. Heart size is normal. Bones and chest wall: No suspicious bony lesions. Overlying soft tissues appear unremarkable. IMPRESSION: No acute cardiopulmonary findings Reviewed by: Declan Conklin MD on 04/22/2023 5:41 PM [place] Approved by: Declan Conklin MD on 04/22/2023 5:41 PM [place] Station ID: [id number]
[2023-04-22] MEDS ORDERED: iohexoL-300 100 ML VIAL IVP ONE (19:05)
--- NOTE | 2023-04-22 19:09 | CT Report ---
PROCEDURE: HEAD WO INDICATIONS: dizzy TECHNIQUE: Noncontrast 4.5 mm thick angled axial sections acquired from the foramen magnum to the vertex. For r adiation dose reduction, the following was used: automated exposure control, adjustment of mA and/or kV according to patient size. COMPARISON: CTA head and neck 04/22/2023, MR brain 2018. FINDINGS: Image quality: Excellent. The ventricular system and cortical sulci demonstrate atrophy, consistent for patient's stated age. There are areas of hypodensity in the periventricular and subcortical white matter. There is no acut e intra or extra-axial fluid collection. No acute hemorrhage, mass lesion or midline shift. Brainst em is unremarkable. Old right cerebellar infarction. Globes are symmetrical. Sinuses are aerated. Osseous structures are intact. IMPRESSION: 1. No acute intracranial process. 2. Moderate atrophy and chronic microvascular ischemic changes. Reviewed by: Daylin Fuller MD on 04/22/2023 7:08 PM PST Approved by: Daylin Fuller MD on 04/22/2023 7:08 PM PST Station ID: [id number]
--- NOTE | 2023-04-22 19:13 | CT Report ---
PROCEDURE: CT Angio Head/Neck INDICATIONS: dizzy TECHNIQUE: After the administration of intravenous contrast, 1 mm thick sections acquired from the aortic arch t hrough the [place] of [place]. 3-dimensional fstyyvm-[id number]-ozqnfvscoj (MIP) and/or volume renderin g reformats were acquired of the central intracranial vasculature and neck separately. For radiation dose reduction, the following was used: automated exposure control, adjustment of mA and/or kV acco rding to patient size. COMPARISON: CT head 04/22/2023, MRI and MRA brain /head and neck 2018 FINDINGS: Image quality: Diagnostic. HEAD CT: Please see separately dictated CT had report of 04/22/2023. HEAD CT ANGIOGRAPHY: Anterior circulation: Intracranial internal carotid arteries are normal in size and flow. The flow within the paired anterior cerebral arteries is normal and symmetric. The flow within the middle cer ebral arteries is normal and symmetric. The anterior communicating artery is seen. No aneurysms are seen. Posterior circulation: Trace left vertebral artery dominance. Visualized portions of the vertebral a rteries demonstrate normal caliber, and join to form a normal appearing basilar artery. Flow within the posterior cerebral arteries is normal and symmetric. No aneurysms are seen. NECK CT ANGIOGRAPHY: Carotid system: The great vessels demonstrate a conventional anatomy as they arise from the aortic a rch. The origins of the common carotid arteries appear patent. The common carotid arteries demonstr ate normal caliber and courses. The bifurcation regions are both widely patent. The internal caroti d arteries demonstrate normal calibers and courses. Posterior circulation: The origins of the vertebral arteries are not well evaluated secondary to lac k of visualization from artifact. The more superior extracranial portions of both vertebral arteries also demonstrate normal courses and calibers. They join to form a normal appearing basilar artery. Soft tissues: Visualized neck soft tissues demonstrate no suspicious abnormalities. Bones: No suspicious bony lesions. Visualized cervical spine appears normally aligned. IMPRESSION: No areas of hemodynamically significant stenosis, vascular occlusion or aneurysmal dilation within th e anterior circulation. No areas of hemodynamically significant stenosis, vascular occlusion or aneurysmal dilation within th e posterior circulation. There are no areas of hemodynamically significant stenosis, vascular occlusion or aneurysmal dilation within the neck vasculature. The estimate of stenosis included in the report of the imaging study was calculated using the NASCET method Reviewed by: Daylin Fuller MD on 04/22/2023 7:12 PM PST Approved by: Daylin Fuller MD on 04/22/2023 7:12 PM [facility] Station ID: [id number]
[2023-04-23 11:12] VITALS: BP 134/73
== END 2023-04-22 19:51 | disposition home or self-care (01) ==
LOC: ED 16:28
DX: R42 Dizziness and giddiness (principal); R11.2 Nausea with vomiting, unspecified; R61 Generalized hyperhidrosis; N18.9 Chronic kidney disease, unspecified
CPT/HCPCS: 36415; 70450; 70496; 70498; 71045; 80053; 83690; 83735; 84100; 84439; 84443; 84484; 85025; 93005; 96374; 99283; 99284; Q9967

== ENCOUNTER 2023-05-01 14:16 | Outpatient (CLI) | payer MEDICARE ==
--- NOTE | 2023-05-01 16:52 | MRI Report ---
PROCEDURE: BRAIN WO INDICATIONS: DIAPHORESIS TECHNIQUE: Noncontrast axial T1 spin echo, axial T2 fast spin echo, sagittal and axial FLAIR, coronal T2 fast sp in echo, axial gradient echo, axial diffusion and ADC through the brain. COMPARISON: CT of the head dated 04/22/2023. FINDINGS: Image quality: Excellent. CSF Spaces: Basal cisterns are patent. No extra-axial fluid collections. Ventricles are normal in size and shape. Brain: No intracranial masses or hemorrhage. Remote wedge-shaped infarct in the right inferior medi al cerebellum is unchanged. Prominent sulcus in the left posterior parietal lobe likely also related to prior infarct and unchanged compared to prior CT. Minimal small vessel ischemic disease. Stephen/whit e matter interface is normal. Brainstem appears normal. Diffusion-weighted images demonstrate no ac rhonda ischemic insult. No chronic ischemic insults. Normal intravascular flow voids are present. Skull and face: Calvarium has normal marrow signal. Orbits appear normal. Sinuses: Sinuses and mastoids are clear. IMPRESSION: 1. No acute intracranial abnormality. No acute ischemia. 2. Remote right inferior cerebellar infarct. 3. Minimal small vessel ischemic disease. Reviewed by: Agusto Vidal on 05/01/2023 4:51 PM PST Approved by: Agusto Vidal on 05/01/2023 4:51 PM PST Station ID: [id number]
== END 2023-05-01 14:17 | disposition home or self-care (01) ==
LOC: DI 14:16
PROVIDERS: ATTEND Family Medicine
DX: I67.2 Cerebral atherosclerosis (principal); Z86.73 Personal history of transient ischemic attack (TIA), and cerebral infarction without residual deficits